=== PATIENT | female | born 1985 | race Caucasian/White ===

== ENCOUNTER 2022-08-14 20:08 | Inpatient (IN) | payer OTHER ==
[~2022-08-14] VITALS: Ht 157.5 cm; Wt 76.8 kg
[~2022-08-14 20:08] MED LIST: ENOX40I SUBQ; ONDA4ODT MM; RANI150 PO
[2022-08-14 20:42] LABS: BASOPHILS ABSOLUTE AUTO 0.02 K/mm3 (0.00-0.23); BASOPHILS PERCENT AUTO 0 % (0-2); EOSINOPHILS ABSOLUTE AUTO 0.01 K/mm3 (0.00-0.68); EOSINOPHILS PERCENT AUTO 0 % (0-6); Hematocrit 42.7 % (33.0-51.0); Hemoglobin 14.9 g/dL (11.5-16.0); IMMATURE GRAN ABSOLUTE AUTO 0.05 K/mm3 (0.00-0.10); IMMATURE GRAN PERCENT AUTO 0 % (0-1); LYMPHOCYTES ABSOLUTE AUTO 2.92 K/mm3 (0.84-5.20); LYMPHOCYTES PERCENT AUTO 20 % (21-46); MONOCYTES PERCENT AUTO 5 % (4-13); Mean Corpuscular HGB 28.7 pg (26.0-34.0); Mean Corpuscular HGB Conc 34.9 g/dL (31.5-36.5); Mean Corpuscular Volume 82 fL (80-100); Mean Platelet Volume 8.9 fL (9.1-12.4); NEUTROPHILS ABSOLUTE AUTO 11.31 K/mm3 (1.96-9.15); NEUTROPHILS PERCENT AUTO 75 % (41-73); Platelet Count 356 K/mm3 (150-400); RDW Coefficient Variation 11.9 % (11.7-14.2); RDW Standard Deviation 35.5 fL (35.1-46.3); White Blood Cell Count 15.01 K/mm3 (4.00-11.30)
[2022-08-14 21:05] LABS: Beta HCG, Quantitative, Serum <1 mIU/mL (0-3)
[2022-08-14 21:07] LABS: Alanine Aminotransfer (ALT/SGP 59 U/L (12-78); Albumin, Blood 4.2 g/dL (3.4-5.0); Albumin/Globulin Ratio 1.1 (0.8-1.8); Alk Phos 83 U/L (50-136); Anion Gap 9 mmol/L (6-16); Aspartate Aminotrans (AST/SGOT 66 U/L (12-37); Blood Urea Nitrogen 10 mg/dL (8-24); CO2, Blood 24 mmol/L (21-32); Calcium, Blood 10.4 mg/dL (8.5-10.1); Chloride, Blood 103 mmol/L (98-108); Creatinine, Blood 0.71 mg/dL (0.40-1.00); Globulin, Blood 3.8 g/dL (2.2-4.0); Glomerular Filtration Rate 112 (60-); Glucose, Blood 114 mg/dL (70-99); Potassium, Blood 3.7 mmol/L (3.5-5.5); Sodium, Blood 136 mmol/L (136-145)
--- NOTE | 2022-08-15 02:14 | NUR ---
REPORT FROM RING FACERNARCISO GOMEZ. AWAITING PATIENT ARRIVAL TO ROOM 342
[2022-08-15 02:31] VITALS: BP 129/88
[2022-08-15] MEDS ORDERED: Ranitidine HCl150 M1 PO (04:12)
--- NOTE | 2022-08-15 06:09 | NUR ---
PATIENT IS A&OX4, INDEPENDENT IN ROOM. SHE IS TOLERATING NPO STATUS AND IV FLUIDS WELL. UPON ARRIVAL, PATIENT HAD SMALL WISE/GREEN EMESIS AFTER TRANSFERRING FROM [facility] TO BED. NONE SINCE. THIS MORNING SHE REQUESTED MORE PAIN MANAGEMENT FOR STOMACH DISCOMFORT AND RECEIVED 0.5MG DILAUDED WHICH GAVE HER COMPLETE RELIEF. NO FURTHER COMPLAINTS. JUST QUESTIONING WHAT IS GOING ON
[2022-08-15 06:25] LABS: CHOL/HDL RATIO 3.2; Cholesterol 159 mg/dL (50-200); HDL Cholesterol 50 mg/dL (>39); LDL/HDL RATIO 1.9; Low Density Lipoprotein Chol 95 mg/dL (0-110); Triglycerides 68 mg/dL (30-140); Very Low Density Lipoprot Chol 13 mg/dL (6-28)
[2022-08-15 07:49] VITALS: BP 117/75
--- NOTE | 2022-08-15 18:09 | NUR ---
SHIFT SUMMARY MEDICATED FOR PAIN AND NAUSEA SEVERAL TIMES PER EMAR. PT RECEIVED MORPHINE AND PAIN HAS BEEN MUCH MORE TOLERABLE. PT SLEEPING AT THIS TIME. IVF INFUSING WITHOUT DIFFICULTY. NO ACUTE CHANGES. WILL CONTINUE TO MONITOR AND REPORT TO ONCOMING RN. CALL LIGHT IN REACH.
[2022-08-15 20:12] VITALS: BP 138/89
[2022-08-16] VITALS (8 sets, daily range): BP systolic 128–152; BP diastolic 84–104
[2022-08-16 06:13] LABS: BASOPHILS ABSOLUTE AUTO 0.02 K/mm3 (0.00-0.23); BASOPHILS PERCENT AUTO 0 % (0-2); EOSINOPHILS ABSOLUTE AUTO 0.01 K/mm3 (0.00-0.68); EOSINOPHILS PERCENT AUTO 0 % (0-6); Hematocrit 37.1 % (33.0-51.0); Hemoglobin 12.8 g/dL (11.5-16.0); IMMATURE GRAN ABSOLUTE AUTO 0.04 K/mm3 (0.00-0.10); IMMATURE GRAN PERCENT AUTO 0 % (0-1); LYMPHOCYTES ABSOLUTE AUTO 0.82 K/mm3 (0.84-5.20); LYMPHOCYTES PERCENT AUTO 6 % (21-46); MONOCYTES PERCENT AUTO 7 % (4-13); Mean Corpuscular HGB 29.2 pg (26.0-34.0); Mean Corpuscular HGB Conc 34.5 g/dL (31.5-36.5); Mean Corpuscular Volume 85 fL (80-100); Mean Platelet Volume 9.7 fL (9.1-12.4); NEUTROPHILS ABSOLUTE AUTO 12.91 K/mm3 (1.96-9.15); NEUTROPHILS PERCENT AUTO 87 % (41-73); Platelet Count 266 K/mm3 (150-400); RDW Coefficient Variation 12.2 % (11.7-14.2); RDW Standard Deviation 37.5 fL (35.1-46.3); Red Blood Cell Count 4.38 M/mm3 (3.80-5.20)
[2022-08-16 07:06] LABS: Albumin, Blood 3.4 g/dL (3.4-5.0); Albumin/Globulin Ratio 1.2 (0.8-1.8); Bilirubin, Total 5.1 mg/dL (0.1-1.0); Bun/Creatinine Ratio 11.6 (12.0-20.0); Creatinine, Blood 0.52 mg/dL (0.40-1.00); Globulin, Blood 2.8 g/dL (2.2-4.0); Potassium, Blood 3.7 mmol/L (3.5-5.5); Total Protein, Blood 6.2 g/dL (6.4-8.2)
[2022-08-16 07:07] LABS: Calcium, Blood 8.4 mg/dL (8.5-10.1)
--- NOTE | 2022-08-16 07:22 | NUR ---
SHIFT SUMMARY: A&O X 4 ABLE TO MAKE NEEDS KNOWN. AMBULATES WITHOUT ASSISTANCE IN ROOM. CURRENTLY REMAINS NPO FOR ACUTE PANCREATITIS, LACTATED RINGERS @ 125 MLS. SHE CURRENTLY HAS MORPHINE FOR PAIN EVERY 4 FOURS BUT IT IS NOT QUITE HOLDING HER OVER AND WILL NEED AN ADJUSTMENT IN HER DOSE, ON COMING RN NOTIFIED OF PAIN MEDICATION CHANGE REQUEST. ZOFRAN AND COMPAZINE PROVIDED IV FOR NAUSEA WHICH IS VERY HELPFUL. CALL LIGHT WITHIN REACH.
--- NOTE | 2022-08-16 12:45 | NUR ---
O2 PLACED FOR O2 STATS OF 88% ON RA AFTER PRESSURIZATION MECHANIC STARTED. PT NOW SATING AT 96% ON 2L O2 VIA NC.
--- NOTE | 2022-08-16 18:11 | NUR ---
DISCHARGE PT DISCHARGED TO [facility] TO TRANSFER TO [facility] IN [place] FOR POSSIBLE ERCP. PT PAIN WELL CONTROLL PRIOR TO LEAVING. PUMP WITH LR RUNNING 125 ML/HR SENT WITH PT. PT PAIN DRASTICALLY BETTER THIS AFTERNOON COMPARED TO THE START OF THE DAY. 2L O2 IN PLACE DUE TO DESATING AFTER MORPHINE WAS ADMINISTERED THIS AM. PT FAMILY UP TO DATE ON PLAN OF CARE. NO OTHER ACUTE CHANGES IN ASSESSMENT PRIOR TO DC. REPORT CALLED TO NARCISO ABAD AT [facility] AND HAD NO FURTHER QUESTIONS AT THIS TIME.
--- NOTE | 2022-08-16 20:32 | NUR ---
REVIEWED INFORMATION TO ADD DETAILS R/T TRANSFER
== END 2022-08-16 18:01 | disposition short-term general hospital (02) | DRG 439 ==
LOC: ER 20:08 → MEDS 08-15 02:04
PROVIDERS: Emergency Medicine; Family Medicine; ADMIT Internal Medicine
DX: K85.10 Biliary acute pancreatitis without necrosis or infection (principal); D68.51 Activated protein C resistance; K80.10 Calculus of gallbladder with chronic cholecystitis without obstruction; D72.829 Elevated white blood cell count, unspecified; F10.90 Alcohol use, unspecified, uncomplicated; R00.0 Tachycardia, unspecified; Z79.899 Other long term (current) drug therapy
CPT/HCPCS: 36415; 71045; 71260; 74177; 74181; 80053; 80061; 82947; 83690; 84702; 85025; 93005; 93010; 94762; 96374-59; 96375-59; 96376-59; 99285-25; J0780; J1170; J1790; J2270; J2405; J7030; J7120; Q9967

== ENCOUNTER → 2024-12-27 | Outpatient (CLI) | payer OTHER ==
[~2024-12-27] MED LIST changes: +Ranitidine HCl150 M1 PO
== END ==
LOC: LAB SHORT 16:30 → LAB 16:30
PROVIDERS: Obstetrics & Gynecology
DX: Z01.419 Encounter for gynecological examination (general) (routine) without abnormal findings (principal)
CPT/HCPCS: 87624; G0145